=== PATIENT | female | born 1935 | race Two or more races ===

== ENCOUNTER 2025-02-22 21:20 | Inpatient (IN) | payer MEDICARE, BC ==
[~2025-02-22] VITALS: Ht 160 cm; Wt 50.1 kg
[2025-02-22 21:47] VITALS: BP 121/43; TEMP 99.4; O2SAT 97
[2025-02-22] MEDS ORDERED: REMEDY ESSENTIAL ZINC PASTE 113 GM TP PRN (22:00)
[2025-02-22] MEDS ORDERED: ONDANSETRON 4 MG/2 ML VIAL IV PRN (22:00)
[2025-02-22] MEDS ORDERED: MAGNESIUM HYDROXIDE 30 ML LIQUID UDC PO PRN (22:00)
[2025-02-22] MEDS ORDERED: METH-806 PO (22:15)
[2025-02-22] MEDS ORDERED: ATOR10TA PO (22:15)
[2025-02-22] MEDS ORDERED: PROP20TA7 PO (22:15)
[2025-02-22] MEDS ORDERED: ESCI10TA PO (22:15)
[2025-02-22] MEDS ORDERED: ESCI5TAB PO (22:15)
[2025-02-22] MEDS ORDERED: AMLO-212 PO (22:15)
[2025-02-22] MEDS ORDERED: TRAM50TA2 PO (22:15)
[2025-02-22] MEDS: IV NS 1000 ML 1,000 ML IV PRN (23:11)
[2025-02-23] MEDS: HYDROCODONE/APAP 10-325 MG TABLET PO PRN ×2 (05:58→11:13)
[2025-02-23 06:16] VITALS: BP 135/64; TEMP 98.6; O2SAT 95
[2025-02-23 07:41] LABS: PLATELET COUNT (AUTO) 340 K/uL (179-408); RED BLOOD CELL COUNT(AUTO) 3.12 MIL/uL (3.63-4.92); RED CELL DISTRIBUTION WIDTH 14.8 % (12.3-17.7); WHITE BLOOD COUNT (AUTO) 8.9 K/uL (3.8-11.8)
[2025-02-23 08:02] LABS: CREATININE 0.8 mg/dL (0.6-1.3); SODIUM SERUM 142 mmol/L (136-145); UREA NITROGEN, BLOOD 21 mg/dL (7-18)
[2025-02-23] MEDS ORDERED: HYDROMORPHONE 1 MG/1 ML DISP.SYRIN IV PRN (11:00)
[2025-02-23 11:32] VITALS: BP 96/48; TEMP 98.9; O2SAT 98
[2025-02-23] MEDS ORDERED: ASPI81TA31 PO (12:56)
[2025-02-23] MEDS: PROPRANOLOL HCL 20 MG TABLET PO SCH (14:00)
[2025-02-23] MEDS: METHOCARBAMOL 500 MG TABLET PO SCH (14:14)
[2025-02-23] MEDS: MEDIHONEY= THERAHONEY 1.5 OZ TUBE TOP SCH (15:22)
[2025-02-23 15:34] VITALS: BP 91/46; TEMP 98.6; O2SAT 96
[2025-02-23] MEDS: ACETAMINOPHEN 325 MG TABLET PO PRN (16:16)
[2025-02-23 19:24] VITALS: BP 100/44; TEMP 98.4; O2SAT 93
[2025-02-23 19:28] VITALS: BP 128/51; TEMP 97.3; O2SAT 100
[2025-02-23] MEDS: ENSURE ENLIVE (VAN) 240 ML LIQUID PO SCH (20:00)
[2025-02-23] MEDS: ATORVASTATIN 10 MG TABLET PO SCH (20:50)
[2025-02-23] MEDS: ESCITALOPRAM OXALATE 10 MG TABLET PO SCH (20:50)
[2025-02-23] MEDS: ENSURE WITH FIBER 237 ML LIQUID (CHOCOLATE) PO SCH (20:51)
[2025-02-23] MEDS: TRAMADOL HCL 50 MG TABLET PO PRN (21:32)
[2025-02-24] MEDS: TEMAZEPAM 7.5 MG CAPSULE PO PRN (01:09)
[2025-02-24 05:53] VITALS: BP 100/48; TEMP 98; O2SAT 97
[2025-02-24] MEDS ORDERED: ENSURE ENLIVE (VAN) 240 ML LIQUID PO SCH ×2 (08:00→17:00)
[2025-02-24 08:17] LABS: *BILIRUBIN,URIN NEGATIVE (NEGATIVE); *BLOOD, URINE NEGATIVE (NEGATIVE); *CLARITY,URINE CLEAR (CLEAR); *COLOR,URINE YELLOW (YELLOW); *KETONES,URINE NEGATIVE (NEGATIVE); *PROTEIN,URINE NEGATIVE (NEGATIVE); *UROBILINOGEN,URINE 0.2 E.U./dl (NORMAL); LEUKOCYTE ESTERASE ,URINE NEGATIVE (NEGATIVE); NITRITE, URINE NEGATIVE (NEGATIVE); UGLUCOSE NEGATIVE (NEGATIVE)
[2025-02-24] MEDS: ARGININE/GLUTAMINE/CALCIUM BMB 1 EACH POWD.PACK PO SCH (08:59)
[2025-02-24] MEDS: ASPIRIN 81 MG TAB.CHEW PO SCH (08:59)
[2025-02-24] MEDS: ESCITALOPRAM OXALATE 10 MG TABLET PO SCH (08:59)
[2025-02-24] MEDS: ENSURE WITH FIBER 237 ML LIQUID (CHOCOLATE) PO SCH (09:00)
[2025-02-24] MEDS: AMLODIPINE 5 MG TABLET PO SCH (09:00)
[2025-02-24 10:51] LABS: PLATELET COUNT (AUTO) 372 K/uL (179-408); RED BLOOD CELL COUNT(AUTO) 3.22 MIL/uL (3.63-4.92); RED CELL DISTRIBUTION WIDTH 14.9 % (12.3-17.7); WHITE BLOOD COUNT (AUTO) 10.2 K/uL (3.8-11.8)
[2025-02-24 11:08] LABS: CREATININE 0.8 mg/dL (0.6-1.3); SODIUM SERUM 143 mmol/L (136-145); UREA NITROGEN, BLOOD 20 mg/dL (7-18)
[2025-02-24 11:32] VITALS: BP 101/55; TEMP 98.9; O2SAT 96
[2025-02-24 13:12] LABS: IRON, SERUM 21 ug/dL (50-175)
[2025-02-24 15:44] VITALS: BP 98/46; TEMP 99.5; O2SAT 95
[2025-02-24] MEDS: ENSURE ENLIVE (VAN) 240 ML LIQUID PO SCH (17:36)
[2025-02-24 19:28] VITALS: BP 127/88; TEMP 99.2; O2SAT 98
[2025-02-24 23:30] VITALS: BP 127/88; TEMP 99.2; O2SAT 98
[2025-02-25 05:19] VITALS: BP 132/56; TEMP 97.9; O2SAT 97
[2025-02-25 06:45] LABS: PLATELET COUNT (AUTO) 380 K/uL (179-408); RED BLOOD CELL COUNT(AUTO) 3.26 MIL/uL (3.63-4.92); RED CELL DISTRIBUTION WIDTH 15.0 % (12.3-17.7); WHITE BLOOD COUNT (AUTO) 8.9 K/uL (3.8-11.8)
[2025-02-25 07:09] LABS: ASPARTATE AMINOTRANSFERASE 14 U/L (15-37); CREATININE 0.8 mg/dL (0.6-1.3); SODIUM SERUM 143 mmol/L (136-145); TOTAL PROTEIN, SERUM 5.6 g/dL (6.4-8.2); UREA NITROGEN, BLOOD 17 mg/dL (7-18)
[2025-02-25 11:59] VITALS: BP 127/60; TEMP 99.6; O2SAT 97
[2025-02-25 16:26] VITALS: BP 124/58; TEMP 99.9; O2SAT 97
[2025-02-25 19:00] VITALS: BP 126/62; TEMP 98.1; O2SAT 96
[2025-02-26 06:00] VITALS: BP 141/69; TEMP 98.1; O2SAT 95
[2025-02-26 06:29] LABS: PLATELET COUNT (AUTO) 404 K/uL (179-408); RED BLOOD CELL COUNT(AUTO) 3.59 MIL/uL (3.63-4.92); RED CELL DISTRIBUTION WIDTH 14.8 % (12.3-17.7); WHITE BLOOD COUNT (AUTO) 8.8 K/uL (3.8-11.8)
[2025-02-26 06:41] LABS: CREATININE 0.7 mg/dL (0.6-1.3); SODIUM SERUM 143 mmol/L (136-145); UREA NITROGEN, BLOOD 13 mg/dL (7-18)
[2025-02-26 12:06] VITALS: BP 124/60; TEMP 99.6; O2SAT 95
[2025-02-26 15:35] VITALS: BP 109/59; TEMP 98.5; O2SAT 94
[2025-02-26 21:49] VITALS: BP 108/58; TEMP 98.5; O2SAT 94
[2025-02-27 05:51] VITALS: BP 146/68; TEMP 98.4; O2SAT 94
[2025-02-27 06:50] LABS: PLATELET COUNT (AUTO) 407 K/uL (179-408); RED BLOOD CELL COUNT(AUTO) 3.62 MIL/uL (3.63-4.92); RED CELL DISTRIBUTION WIDTH 14.3 % (12.3-17.7); WHITE BLOOD COUNT (AUTO) 8.8 K/uL (3.8-11.8)
[2025-02-27 07:02] LABS: CREATININE 0.7 mg/dL (0.6-1.3); SODIUM SERUM 141 mmol/L (136-145); UREA NITROGEN, BLOOD 13 mg/dL (7-18)
[2025-02-27 11:20] VITALS: BP 141/87; TEMP 98.1; O2SAT 97
[2025-02-27 16:04] VITALS: BP 133/71; TEMP 99.2; O2SAT 97
[2025-02-27 19:00] VITALS: BP 117/57; TEMP 99; O2SAT 97
[2025-02-28 06:00] VITALS: BP 145/80; TEMP 99; O2SAT 95
[2025-02-28 08:44] VITALS: BP 139/67; TEMP 98.2; O2SAT 96
[2025-02-28 11:05] VITALS: BP 128/60; TEMP 97.9; O2SAT 98
[2025-02-28 15:05] VITALS: BP 123/60; TEMP 97.9; O2SAT 96
[2025-02-28 19:00] VITALS: BP 140/74; TEMP 98.9; O2SAT 95
[2025-03-01 06:00] VITALS: BP 150/68; TEMP 98.8; O2SAT 95
[2025-03-01 08:12] VITALS: BP 146/71; TEMP 98; O2SAT 96
[2025-03-01 10:55] VITALS: BP 150/69; TEMP 98.2; O2SAT 94
[2025-03-01 14:51] VITALS: BP 150/69
== END 2025-03-01 17:15 | DRG 640 ==
LOC: MEDSURG3 21:20
PROVIDERS: ADMIT Nurse Practitioner Acute Care; ATTEND Nurse Practitioner Acute Care
DX: E86.0 Dehydration (principal); S72.334A Nondisplaced oblique fracture of shaft of right femur, initial encounter for closed fracture; M97.01XA Periprosthetic fracture around internal prosthetic right hip joint, initial encounter; Z68.1 Body mass index [BMI] 19.9 or less, adult; D63.8 Anemia in other chronic diseases classified elsewhere; G25.0 Essential tremor; X58.XXXA Exposure to other specified factors, initial encounter; Y92.009 Unspecified place in unspecified non-institutional (private) residence as the place of occurrence of the external cause; D25.9 Leiomyoma of uterus, unspecified; S30.0XXA Contusion of lower back and pelvis, initial encounter; E78.5 Hyperlipidemia, unspecified; K27.9 Peptic ulcer, site unspecified, unspecified as acute or chronic, without hemorrhage or perforation; I10 Essential (primary) hypertension; Z88.5 Allergy status to narcotic agent; F41.9 Anxiety disorder, unspecified; Z96.641 Presence of right artificial hip joint; R63.0 Anorexia
CPT/HCPCS: 36415; 70450; 72170; 72192; 82746; 83550; 83735; 84100; 84443; 85025; 87086; A4663; A6213; G0378; J7040